=== PATIENT | female | born 1965 | race African-American/Black ===

== ENCOUNTER 2017-09-25 20:05 | Emergency (ER) | payer BC, OTHER ==
[2017-09-25 20:12] VITALS: PULSE 72; TEMP 98.2; BMI 29.8
[2017-09-25 21:29] LABS: EOS % 2.7 % (0-4.5); HEMATOCRIT 31.6 % (32.4-45.2); HEMOGLOBIN 10.6 GM/dL (10.7-15.3); LYMPH % 29.7 % (8-40); MCH 23.4 pg (25.7-33.7); MCHC 33.7 g/dl (32.0-36.0); MEAN CELL VOLUME 69.6 fl (80-96); MEAN PLT VOLUME 7.9 fl (7.5-11.1); MONO % 8.5 % (3.8-10.2); NEUT % 58.1 % (42.8-82.8); PLATELET COUNT 261 K/MM3 (134-434); RBC 4.54 M/mm3 (3.60-5.2); RDW 14.6 % (11.6-15.6); WHITE BLOOD COUNT 5.9 K/mm3 (4.0-10.0)
[2017-09-25 21:32] LABS: URINE APPEARANCE CLEAR; URINE BILIRUBIN NEGATIVE (<2.0 mg/dL); URINE BLOOD 2+ (NEGATIVE); URINE COLOR LTYELLOW; URINE GLUCOSE (UA) NEGATIVE (NEGATIVE); URINE KETONE NEGATIVE (NEGATIVE); URINE LEUK ESTERASE NEGATIVE (NEGATIVE); URINE NITRITE NEGATIVE (NEGATIVE); URINE PROTEIN NEGATIVE (NEGATIVE); URINE UROBILINOGEN NEGATIVE mg/dL (0.2-1.0)
[2017-09-25 21:45] LABS: EPI CELLS RARE /HPF (FEW); URINE MUCUS RARE
--- NOTE | 2017-09-25 21:45 | PDOC ---
History of Present Illness <Evangelina Treviñoce - Last Filed: 09/26/17 00:25> - History of Present Illness Initial Comments: 09/25/17 21:39 "The patient is a 52 year old female with history of anemia, s/p , who presents to the ED complaining of 1 day of diffuse abdominal pain, worst in the right lower quadrant. Abdominal pain is constant, radiates upwards to her RUQ. She also reports associated generalized weakness. Denies N/V. Denies diarrhea/ constipation. Denies CP/SOB. Denies F/C. Denies worsening of pain with eating. Denies dysuria. The patient also complains of approximately 5 days of left lower extremity knee and calf pain and swelling. Denies injury or fall. Still ambulatory without any issue. She denies exogenous hormone use, recent travel, or long periods of immobilization. PCP: Dr. Knox" <Edenilson Mcgill - Last Filed: 09/26/17 00:32> - General Chief Complaint: Chest Pain Stated Complaint: CHEST PAIN Time Seen by Provider: 09/25/17 20:28 Past History <Jennifer Treviño - Last Filed: 09/26/17 00:25> - Suicide/Smoking/Psychosocial Hx Smoking Status: No Smoking History: Never smoked Have you smoked in the past 12 months: No Number of Cigarettes Smoked Daily: 0 Information on smoking cessation initiated: No Hx Alcohol Use: No Drug/Substance Use Hx: No <Edenilson Mcgill - Last Filed: 09/26/17 00:32> - Past Medical History Allergies/Adverse Reactions: Allergies Allergy/AdvReac Type Severity Reaction Status Date / Time No Known Allergies Allergy Verified 09/25/17 20:12 Review of Systems - Review of Systems Comments:: 09/25/17 21:45 "GENERAL/CONSTITUTIONAL: No fever or chills. +Generalized weakness. HEAD, EYES, EARS, NOSE AND THROAT: No change in vision. No ear pain or discharge. No sore throat. CARDIOVASCULAR: No chest pain. No shortness of breath. RESPIRATORY: No cough, wheezing, or hemoptysis. GASTROINTESTINAL: + RLQ pain, No nausea, vomiting, diarrhea or constipation. GENITOURINARY: No dysuria, frequency, or change in urination. MUSCULOSKELETAL: + L knee pain, No joint or muscle swelling or pain. No neck or back pain. SKIN: No rash NEUROLOGIC: No headache, vertigo, loss of consciousness, or change in strength/ sensation. ENDOCRINE: No increased thirst. No abnormal weight change. HEMATOLOGIC/LYMPHATIC: No anemia, easy bleeding, or history of blood clots. ALLERGIC/IMMUNOLOGIC: No hives or skin allergy. " <Edenilson Mcgill - Last Filed: 09/26/17 00:32> *Physical Exam - Vital Signs Last Vital Signs Temp Pulse Resp BP Pulse Ox 98.2 F 72 16 160/84 100 09/25/17 20:10 09/25/17 20:10 09/25/17 20:10 09/25/17 20:10 09/25/17 20:10 <Jennifer Treviño - Last Filed: 09/26/17 00:25> - Vital Signs Last Vital Signs Temp Pulse Resp BP Pulse Ox 98.2 F 72 16 160/84 100 09/25/17 20:10 09/25/17 20:10 09/25/17 20:10 09/25/17 20:10 09/25/17 20:10 - Physical Exam Comments: 09/25/17 21:47 "GENERAL: Awake, alert, and fully oriented, in no acute distress HEAD: No signs of trauma EYES: PERRLA, EOMI, sclera anicteric, conjunctiva clear ENT: Auricles normal inspection, hearing grossly normal, nares patent, oropharynx clear without exudates. Moist mucosa NECK: Nontender, no stepoffs, Normal ROM, supple, no lymphadenopathy, JVD, or masses LUNGS: Breath sounds equal, clear to auscultation bilaterally. No wheezes, and no crackles HEART: Regular rate and rhythm, normal S1 and S2, no murmurs, rubs or gallops ABDOMEN: + RLQ tenderness, negative currie's, normoactive bowel sounds. No guarding, no rebound. No masses EXTREMITIES: Normal range of motion, no edema. No clubbing or cyanosis. No cords, erythema, or tenderness NEUROLOGICAL: Cranial nerves II through XII intact. 5/5 strength and sensation in all extremities, Normal speech, normal gait, normal cerebellar function SKIN: Warm, Dry, normal turgor, no rashes or lesions noted. " <Edenilson Mcgill - Last Filed: 09/26/17 00:32> Heart Score/ECG Review - ECG Impressions Comment:: 09/25/17 21:47 NSR, no KYARA/STDs, no TWIs, axis wnl, intervals wnl, rate 60 <Edenilson Mcgill - Last Filed: 09/26/17 00:32> ED Treatment Course - LABORATORY CBC & Chemistry Diagram: 09/25/17 21:24 09/25/17 21:24 - ADDITIONAL ORDERS Additional order review: Laboratory Results 09/25/17 09/25/17 09/25/17 21:24 21:24 21:24 Sodium 139 Potassium 3.6 Chloride 105 Carbon Dioxide 26 Anion Gap 8 BUN 5 L Creatinine 0.5 L Creat Clearance w eGFR > 60 Random Glucose 82 Calcium 8.5 Total Bilirubin 0.5 AST 13 L ALT 12 Alkaline Phosphatase 79 Creatine Kinase 76 Troponin I < 0.02 B-Natriuretic Peptide 85.78 Total Protein 6.8 Albumin 3.6 Lipase 121 Urine Color Ltyellow Urine Appearance Clear Urine pH 5.0 D Ur Specific [place] 1.015 Urine Protein Negative Urine Glucose (UA) Negative Urine Ketones Negative Urine Blood 2+ H Urine Nitrite Negative Urine Bilirubin Negative Urine Urobilinogen Negative Ur Leukocyte Esterase Negative Urine WBC (Auto) 1 Urine RBC (Auto) 4 Ur Epithelial Cells Rare Urine Mucus Rare 09/25/17 21:24 RBC 4.54 MCV 69.6 L MCHC 33.7 RDW 14.6 MPV 7.9 Neutrophils % 58.1 Lymphocytes % 29.7 Monocytes % 8.5 Eosinophils % 2.7 Basophils % 1.0 <Jennifer Treviño - Last Filed: 09/26/17 00:25> - LABORATORY CBC & Chemistry Diagram: 09/25/17 21:24 09/25/17 21:24 - ADDITIONAL ORDERS Additional order review: Laboratory Results 09/25/17 21:24 Urine Color Ltyellow Urine Appearance Clear Urine pH 5.0 D Ur Specific [place] 1.015 Urine Protein Negative Urine Glucose (UA) Negative Urine Ketones Negative Urine Blood 2+ H Urine Nitrite Negative Urine Bilirubin Negative Urine Urobilinogen Negative Ur Leukocyte Esterase Negative 09/25/17 21:24 RBC 4.54 MCV 69.6 L MCHC 33.7 RDW 14.6 MPV 7.9 Neutrophils % 58.1 Lymphocytes % 29.7 Monocytes % 8.5 Eosinophils % 2.7 Basophils % 1.0 - RADIOLOGY Radiology Studies Ordered: Category Date Time Status ABDOMEN & PELVIS CT WITH CONTR [CT] Stat CT Scan 09/25/17 21:03 Ordered CHEST PA & LAT [RAD] Stat Radiology 09/25/17 21:04 Ordered DUPLEX VASCUL US-1 LEG [US] Stat Ultrasound 09/25/17 21:03 Ordered <Edenilson Mcgill - Last Filed: 09/26/17 00:32> Medical Decision Making - Medical Decision Making 09/26/17 00:25 CT of abdomen and pelvis, preliminary interpretation by [facility] [employer]. EXAM: CT ABDOMEN AND PELVIS WITH CONTRAST Impression: 3.0 cm cyst right adnexa, probably ovarian. Enlarged, leiomyomatous uterus. No bowel obstruction, colitis, diverticulitis, free fluid or free air. Normal appendix. Unremarkable pancreas, kidneys and gallbladder. Tiny hepatic cyst or hemangioma. Small umbilical and left inguinal region hernias containing fat. Bilateral inguinal lymphadenopathy, indeterminate. THIS DOCUMENT HAS BEEN ELECTRONICALLY SIGNED Ngoc Caceres M.D. LLE Doppler US, prelimary interpretation by [facility] [employer], demonstrates no evidence of DVT. <Jennifer Treviño - Last Filed: 09/26/17 00:25> - Medical Decision Making 09/25/17 21:48 52 F with RLQ pain radiating up to RUQ x 1 day. Exam notable for RLQ TTP, negative currie's. Will need to r/o appendicitis. Also consider renal colic. No evidence of cholecystitis on exam. Pt also complaining of atraumatic L knee pain and swelling x 5 days. Exam is benign with no significant edema. However, will r/o DVT with US. - Labs, UA - CTAP - LLE doppler 09/26/17 00:29 Doppler negative for DVT CTAP shows R ovarian cyst with uterine fibroids. No appy. + umbilical and inguinal hernias. Pt reassessed - pt is in no significant pain, tolerating PO. Pt is well appearing, with normal vitals. Clinically stable for DC at this time. I discussed the physical exam findings, ancillary test results and final diagnoses with the patient. I answered all of the patient's questions. The patient was satisfied with the care received and felt comfortable with the discharge plan and treatment plan. The patient agrees to follow up with the primary care physician within 24-72 hours. <Edenilson Mcgill - Last Filed: 09/26/17 00:32> *DC/Admit/Observation/Transfer <KristendavonteJennifer - Last Filed: 09/26/17 00:25> - Attestations Physician Attestion: 09/26/17 00:32 I, Dr. Edenilson Mcgill MD, attest that this document has been prepared under my direction and personally reviewed by me in its entirety. I further attest, that it accurately reflects all work, treatment, procedures and medical decision -making performed by me. <Edenilson Mcgill - Last Filed: 09/26/17 00:32> Diagnosis at time of Disposition: Abdominal pain - Discharge Dispostion Disposition: HOME - Referrals Referrals: Lea Knox MD [Primary Care Provider] - - Patient Instructions Printed Discharge Instructions: DI for Abdominal Pain-Adult Additional Instructions: Your CT scan today showed that you have two small hernias. This is unlikely to be the cause of your pain. If you experience worsening pain, fevers, vomiting, or any other concerning symptoms, return to the ER immediately. You should follow up with your primary doctor within 1 week. Your urine test showed a small amount of blood, and you need to have this repeated. - Post Discharge Activity
[2017-09-25 21:50] LABS: ALBUMIN 3.6 g/dl (3.4-5.0); ANION GAP 8 (8-16); BILIRUBIN,TOTAL 0.5 mg/dL (0.2-1.0); BLOOD UREA NITROGEN 5 mg/dL (7-18); CALCIUM 8.5 mg/dL (8.5-10.1); CHLORIDE 105 mmol/L (98-107); CO2 26 mmol/L (21-32); CREATININE 0.5 mg/dL (0.55-1.02); GLUCOSE,RANDOM 82 mg/dL (74-106); LIPASE 121 U/L (73-393); POTASSIUM 3.6 mmol/L (3.5-5.1); SGOT/AST 13 U/L (15-37); SGPT/ALT 12 U/L (12-78); SODIUM 139 mmol/L (136-145)
[2017-09-25 21:51] LABS: ALK PHOS 79 U/L (45-117); N-TERMINAL BNP 85.78 pg/ml (5-125); TOT PROT 6.8 g/dl (6.4-8.2)
[2017-09-26 01:01] VITALS: BP 158/84
--- NOTE | 2017-09-26 21:34 | EKG ---
Test Reason : Blood Pressure : / mmHG Vent. Rate : 060 BPM Atrial Rate : 060 BPM P-R Int : 168 ms QRS Dur : 080 ms QT Int : 426 ms P-R-T Axes : 054 014 055 degrees QTc Int : 426 ms NORMAL SINUS RHYTHM NORMAL ECG WHEN COMPARED WITH ECG OF 09-APR-2009 22:52, NO SIGNIFICANT CHANGE WAS FOUND Confirmed by TYLOR CABELLO MD ([id number]) on 09/26/2017 9:33:41 PM Referred By: Confirmed By:TYLOR CABELLO MD
--- NOTE | 2017-09-27 07:25 | PDOC ---
*Physical Exam - Vital Signs Last Vital Signs Temp Pulse Resp BP Pulse Ox 98.2 F 72 18 158/84 100 09/26/17 00:59 09/26/17 00:59 09/26/17 00:59 09/26/17 00:59 09/26/17 00:59 ED Treatment Course - LABORATORY CBC & Chemistry Diagram: 09/25/17 21:24 09/25/17 21:24 - ADDITIONAL ORDERS Additional order review: 09/25/17 21:24 RBC 4.54 MCV 69.6 L MCHC 33.7 RDW 14.6 MPV 7.9 Neutrophils % 58.1 Lymphocytes % 29.7 Monocytes % 8.5 Eosinophils % 2.7 Basophils % 1.0 - RADIOLOGY Radiology Studies Ordered: Category Date Time Status ABDOMEN & PELVIS CT WITH CONTR [CT] Stat CT Scan 09/25/17 21:03 Completed CHEST PA & LAT [RAD] Stat Radiology 09/25/17 21:04 Completed DUPLEX VASCUL US-1 LEG [US] Stat Ultrasound 09/25/17 21:03 Completed Medical Decision Making - Medical Decision Making 09/27/17 07:21 Pt was discharged 09/25 after prelim read of CT was normal. Final report dictated 09/26 shows enlarged appendix, concerning for possible appendicitis. No call was made to pt at this time. I called the pt's cell phone today with no response. I then called the pt's home phone and reached her . I informed pt's of CT results and instructed him to tell her to come immediately to the ER. states that she is currently at work, but he will call her and tell her to come to ER. *DC/Admit/Observation/Transfer Diagnosis at time of Disposition: Abdominal pain - Discharge Dispostion Disposition: HOME - Referrals Referrals: Lea Knox MD [Primary Care Provider] - - Patient Instructions Printed Discharge Instructions: DI for Abdominal Pain-Adult Additional Instructions: Your CT scan today showed that you have two small hernias. This is unlikely to be the cause of your pain. If you experience worsening pain, fevers, vomiting, or any other concerning symptoms, return to the ER immediately. You should follow up with your primary doctor within 1 week. Your urine test showed a small amount of blood, and you need to have this repeated. - Post Discharge Activity
--- NOTE | 2017-09-27 21:16 | PDOC ---
Patient Follow-up (Call Back) - Post ED Follow - Up Reason for Call Back: Radiology (Tried calling the patient but her voicemail was full. Her CT scan of abd/pelvis showed possible early appendicitis.) <Irma Manzano - Last Filed: 09/27/17 21:15> - Post ED Follow - Up Reason for Call Back: Radiology (Tried calling the patient but her voicemail was full. Her CT scan of abd/pelvis showed possible early appendicitis. Spoke to patient regarding CT scan results, I have advised patient to return to emergency department if pain or fever. She verbalized understanding will return. ) <Amanda Jacques - Last Filed: 09/28/17 09:48> - Post ED Follow - Up Disposition at time of original discharge: HOME
== END 2017-09-26 01:01 | disposition home or self-care (01) ==
LOC: JER 20:05
DX: N83.201 Unspecified ovarian cyst, right side (principal); D25.9 Leiomyoma of uterus, unspecified; M25.562 Pain in left knee
CPT/HCPCS: 36415; 71046-TC-FY; 74177-TC; 80053; 81003; 81015; 82550; 83690; 83880; 84484; 85025; 93005; 93010; 93971-TC; 99282-25

== ENCOUNTER 2017-09-30 13:51 | Emergency (ER) | payer BC, OTHER ==
[2017-09-30 14:00] VITALS: BP 142/88; PULSE 73; TEMP 98.2; BMI 29.7
--- NOTE | 2017-09-30 14:54 | PDOC ---
History of Present Illness <Cj Lopez - Last Filed: 09/30/17 14:55> - General History Source: Patient Exam Limitations: No Limitations - History of Present Illness Initial Comments: 09/30/17 15:03 The patient is a 52 year old female with a significant PMH of anemia who presents to the emergency department after originally being seen in the ED for abdominal pain 5 days ago, had a CT scan that was read as normal at the time and was discharged home. The CT scan had another read the next day that was suggestive of a possible appendicitis and the patient was told to return to the ED for evaluation. The patient states she has been eating and drinking well since discharge. The patient has no complaints today. The patient denies abdominal pain, chest pain, shortness of breath, headache and dizziness. Denies fever, chills, nausea, vomit, diarrhea and constipation. Denies dysuria, frequency, urgency and hematuria. Allergies: NKA Past surgical history: Social history: No reported alcohol, drug,or cigarette use. " <Eliza Urena - Last Filed: 09/30/17 15:08> - General Chief Complaint: Revisit,Radiology Variance Stated Complaint: FOLLOW UP Time Seen by Provider: 09/30/17 14:46 Past History - Past Medical History COPD: No Other medical history: denies. - Suicide/Smoking/Psychosocial Hx Smoking Status: No Smoking History: Never smoked Have you smoked in the past 12 months: No Number of Cigarettes Smoked Daily: 0 Hx Alcohol Use: No Drug/Substance Use Hx: No <Cj Lopez - Last Filed: 09/30/17 14:55> <Eliza Urena - Last Filed: 09/30/17 15:08> - Past Medical History Allergies/Adverse Reactions: Allergies Allergy/AdvReac Type Severity Reaction Status Date / Time No Known Allergies Allergy Verified 09/30/17 13:55 Review of Systems - Review of Systems Able to Perform ROS?: Yes Comments:: 09/30/17 15:02 "CONSTITUTIONAL: No reported: Fever, Chills, Diaphoresis, Generalized Weakness, Malaise, Loss of Appetite HEENT: No reported: Rhinorrhea, Nasal Congestion, Throat Pain, Throat Swelling, Difficulty Swallowing, Mouth Swelling, Ear Pain, Eye Pain, Visual Changes CARDIOVASCULAR: No reported: Chest Pain, Syncope, Palpitations, Irregular Heart Rate, Lightheadedness, Peripheral Edema RESPIRATORY: No reported: Cough, Shortness of Breath, SOB with Exertion, Orthopnea, Wheezing , Stridor, Hemoptysis GASTROINTESTINAL: No reported: Abdominal pain, Abdominal Distension, Nausea, Vomiting, Diarrhea, Constipation, Melena, Hematochezia GENITOURINARY: No reported: Dysuria, Frequency, Urgency, Hesitancy, Flank Pain, Genital Pain MUSCULOSKELETAL: No reported: Myalgia, Arthralgia, Joint Swelling, Back pain, Neck Pain SKIN: No reported: Rash, Itching, Pallor HEMEATOLOGIC/IMMUNOLOGIC: No reported: Easy Bleeding, Easy Bruising, Lymphadenopathy, Frequent infections ENDOCRINE: No reported: Unexplained Weight Gain, Unexplained Weight Loss, Heat Intolerance , Cold Intolerance NEUROLOGIC: No reported: Headache, Focal Weakness, Paresthesias, Vertigo, Lightheadedness, Unsteady Gait, Seizure, Mental Status Changes, Incontinence PSYCHIATRIC: No reported: Anxiety, Depression " <Eliza Urena - Last Filed: 09/30/17 15:08> *Physical Exam - Vital Signs Last Vital Signs Temp Pulse Resp BP Pulse Ox 98.2 F 73 18 142/88 100 09/30/17 13:56 09/30/17 13:56 09/30/17 13:56 09/30/17 13:56 09/30/17 13:56 <Cj Lopez - Last Filed: 09/30/17 14:55> - Vital Signs Last Vital Signs Temp Pulse Resp BP Pulse Ox 98.2 F 73 18 142/88 100 09/30/17 13:56 09/30/17 13:56 09/30/17 13:56 09/30/17 13:56 09/30/17 13:56 - Physical Exam Comments: 09/30/17 15:01 "GENERAL: The patient is awake, alert, and fully oriented, Nontoxic - in no acute distress. HEAD: Normocephalic, atraumatic. EYES: extraocular movements intact, sclera anicteric, conjunctiva clear. ENT: Normal voice, Moist mucous membranes. NECK: Normal range of motion, supple LUNGS: Breath sounds equal, clear to auscultation bilaterally. No wheezes, no rhonchi, no rales. HEART: Regular rate and rhythm, without murmur, rub or gallop. ABDOMEN: Soft, nontender, normoactive bowel sounds. No guarding, no rebound.No CVA tenderness EXTREMITIES: Normal range of motion, no edema. No clubbing or cyanosis. No cords, erythema, or tenderness. NEUROLOGICAL: No facial assymetry, Normal speech, PSYCH: Normal mood, normal affect. SKIN: Warm, Dry, normal turgor," <Eliza Urena - Last Filed: 09/30/17 15:08> Medical Decision Making - Medical Decision Making 09/30/17 14:55 52y F hx of anemia s/p csection presents due to radiology variance - the patient originally presented 5 days ago for evaluation of abdominal pain, had a CT that was originally read as negative had an over read that was noted for possible early appendicitis, the patient was called back to return to the ED for evaluation. The patient states that since discharge she is felt well she is otherwise asymptomatic. She has bbeen eating/drinking well, no fever/chills, abd pain, urinary or bowel symptoms. On exam the pt appears well, in no distress pulm exam cta cardiac exam rrr abd is soft nontender, no rebound/guarding, no cva tenderness as pt is otherwise asymptomatic will dc the pt with return precautions I discussed the physical exam findings, ancillary test results and final diagnoses with the patient. I answered all of the patient's questions. The patient was satisfied with the care received and felt comfortable with the discharge plan and treatment plan. The patient will call their primary care physician within 24 hours to arrange follow-up and will return to the Emergency Department with any new, persistent or worsening symptoms. <Cj Lopez - Last Filed: 09/30/17 14:55> *DC/Admit/Observation/Transfer - Discharge Dispostion Admit: No <Cj Lopez - Last Filed: 09/30/17 14:55> - Attestations Scribe Attestion: 09/30/17 15:02 Documentation prepared by Eliza Urena, acting as medical examiner for Cj Lopez MD. <Eliza Urena - Last Filed: 09/30/17 15:08> Diagnosis at time of Disposition: Abnormal CT of the abdomen - Discharge Dispostion Disposition: HOME Condition at time of disposition: Improved - Referrals Referrals: Lea Knox MD [Staff Physician] - - Patient Instructions Printed Discharge Instructions: DI for Abdominal Pain-Adult Additional Instructions: Your CAT scan from several days ago was suggestive of possible early appendicitis, as you are currently feeling better without any abdominal pain, fevers, chills or other complaints I do not think this is the case. Please return to the emergency department if you have any abdominal pain, fevers , chills, vomiting or other concerns. Print Language: UKRAINIAN
== END 2017-09-30 16:34 | disposition home or self-care (01) ==
LOC: JER 13:51
DX: R93.5 Abnormal findings on diagnostic imaging of other abdominal regions, including retroperitoneum (principal)
CPT/HCPCS: 99281-25